=== PATIENT | male | born 1970 | race Native Hawaiian/Other Pacific Islander ===

== ENCOUNTER 2018-05-17 14:21 | Emergency (ER) | payer OTHER ==
[2018-05-17 14:47] VITALS: BP 144/75
--- NOTE | 2018-05-17 14:47 | UC ---
Skin Complaint HPI - HPI Summary HPI Summary: 48 y/o male presents to the urgent care c/o red painful lump in the Rt axilla for the past week. Pain is 5/10 and radiates to the RT nipple. He thought it was a rash from the deodorant at the beginning. Now lump is bigger, more painful and hard. Pt has not taking anything to alleviate symptoms. Pt denies fever, SOB, chest pain, abdominal pain, N/V/D, URI, Hx of STD's. l - History of Current Complaint Time Seen by Provider: 05/17/18 14:46 Stated Complaint: LUMP UNDER ARM Hx Obtained From: Patient Onset/Duration: Gradual Onset, Lasting Weeks - 1 week, Still Present, Worse Since - today Skin Exposure Onset/Duration: Weeks Ago - 1 Timing: Constant Onset Severity: Mild Current Severity: Moderate Pain Intensity: 5 - touch Pain Scale Used: 0-10 Numeric Location: Discrete - RT axilla Character: Swelling, Redness, Raised, Painful Aggravating Factor(s): Touch Alleviating Factor(s): Nothing Associated Signs & Symptoms: Positive: Rash, Tenderness. Negative: Fever, Chills - Allergy/Home Medications Allergies/Adverse Reactions: Allergies Allergy/AdvReac Type Severity Reaction Status Date / Time No Known Allergies Allergy Verified 05/17/18 14:47 Review of Systems Constitutional: Negative Skin: Other - RT axilla w/ a painful red lump Eyes: Negative ENT: Negative Respiratory: Negative Cardiovascular: Negative Gastrointestinal: Negative Genitourinary: Negative Motor: Negative Neurovascular: Negative Musculoskeletal: Negative Neurological: Negative Psychological: Negative Is Patient Immunocompromised?: No All Other Systems Reviewed And Are Negative: Yes PMH/Surg Hx/FS Hx/Imm Hx Previously Healthy: Yes - Pt denies PMHX - Surgical History Surgical History: None - Family History Known Family History: Positive: Cardiac Disease, Hypertension Family History: Cancer - Social History Occupation: Employed Full-time Lives: With Family Alcohol Use: Occasionally Substance Use Type: None Physical Exam - Summary Physical Exam Summary: Vital Signs Reviewed: Yes General: well developed, well nourished male sitting in the examining table w/o any apparent distress Eye Exam: Normal Eyes: Positive: Conjunctiva Clear - PERRLA, EOMI, fundi grossly normal ENT: Positive: Normal ENT inspection, Hearing grossly normal, Pharynx normal, TMs normal Neck: Positive: Supple, Nontender, No Lymphadenopathy Respiratory: Positive: Chest non-tender, Lungs clear, Normal breath sounds, No respiratory distress Cardiovascular: Positive: RRR, No Murmur, Pulses Normal, Brisk Capillary Refill Abdomen Description: Positive: Nontender, No Organomegaly, Soft. Negative: CVA Tenderness (R), CVA Tenderness (L) Bowel Sounds: Positive: Present Musculoskeletal: Positive: Strength Intact, ROM Intact, No Edema Neurological: Positive: Alert, Muscle Tone Normal Psychological Exam: Normal Skin: Positive: RT axilla with an erythematous pustule that is indurated and fluctuant, tender to palpation, swollen, and warm to touch about 4.0cm x 2cm in size. FROM of phalanx, sensation is intact, capillary refill WNL, reflexes WNL Triage Information Reviewed: Yes Course/Dx - Course Course Of Treatment: 48 y/o male presents to the urgent care c/o red painful lump in the Rt axilla for the past week. Pain is 5/10 and radiates to the RT nipple. He thought it was a rash from the deodorant at the beginning. Now lump is bigger, more painful and hard. Pt has not taking anything to alleviate symptoms. Pt denies fever, SOB, chest pain, abdominal pain, N/V/D, URI, Hx of STD's.Hx obtained. Pt w/ a Rt axillary abscess about 4.0cm x2.0cm in size on examination. I&D of abscess procedure:The procedure was explained and consent obtained. Garrett protocol performed w/ Nurse Chelo. The wound was anesthetized with 4mL of Lido 1% with good anesthesia. Sterile drape and prep were done. The fluctuant center was incised with #11 blade scalpel. A moderate amount of caseous material was expressed . wound cultures obtained and sent to lab to r/o MRSA. The wound was probed for loculated areas and irrigated with normal saline. The wound was packed loosely with wick or left open. Bacitracin topical ointment applied and wound covered with sterile dressing. The patient tolerated the procedure well. Pt Rx Keflex PO and ibuprofen PO for pain. Advised to return to the urgent care for wound check up and removal of packing. Pt advised fever develops and pain increase despite ABX to go immediately to the ER for further management. Pt's BP is elevated today advised to decrease salt in diet, monitor BP and f/u with PCP for further management. Pt understood and agreed with D/C instructions. Left the clinic ambulating A&OX3. - Differential Diagnoses - Skin Complaint Differential Diagnoses: Abscess, Cellulitis, Lymphadenitis, MRSA - Diagnoses Provider Diagnoses: 1- Incision and drainage of Rt axillary abscess. 2- Elevated BP w/o Hx of HTN Discharge - Sign-Out/Discharge Documenting (check all that apply): Discharge/Admit/Transfer - D/C home - Discharge Plan Condition: Stable Disposition: HOME Prescriptions: Cephalexin CAP* [Keflex CAP*] 500 mg PO QID #28 cap Ibuprofen TAB* [Motrin TAB* 800 MG] 800 mg PO Q6H PRN #30 tab PRN Reason: Pain Patient Education Materials: Abscess (ED), Low-Sodium Diet (ED) Referrals: [facility] [place] [facility] [Outside] - 2 Days Additional Instructions: 1-Please take full course of antibiotic to avoid resistance. Keep wound clean and dry with a sterile dressing. Apply bacitracin topical as directed 2- F/u wound check up in 2 days with your PCP or at the urgent care for removal of packing 3-. Take Ibuprofen PO q6-8hrs prn for pain or swelling. 4-If you develop fever or redness despite antibiotic please go to the ER immediately or return to the Urgent care. 5- Wound culture sent to lab, if any abnormal result you will receive a call from us. 6-Your BP is elevated today. please decrease salt in your diet, monitor BP and if it continues to be elevated please f/u with your PCP for further management - Billing Disposition and Condition Condition: STABLE Disposition: Home
[2018-05-17] MEDS ORDERED: Lidocaine 1%* 5 ML VIAL INJ ONE (15:05)
== END 2018-05-17 15:52 | disposition home or self-care (01) ==
LOC: UCEAST 14:21
DX: L02.411 Cutaneous abscess of right axilla (principal); R03.0 Elevated blood-pressure reading, without diagnosis of hypertension; Z82.49 Family history of ischemic heart disease and other diseases of the circulatory system; Z80.9 Family history of malignant neoplasm, unspecified
CPT/HCPCS: 10060; 87070; 87077; 87205; 87640; 87641; 99202; G0463

== ENCOUNTER 2018-05-19 16:50 | Emergency (ER) | payer OTHER ==
[2018-05-19 17:11] VITALS: BP 124/77
--- NOTE | 2018-05-19 17:20 | UC ---
HPI Wound/Suture Re-check - HPI Summary HPI Summary: I&D right axilla 2 days ago here for wound re-check and packing removal---MSSA on Keflex - History Of Current Complaint Chief Complaint: UCSkin Stated Complaint: WOUND RECHECK Time Seen by Provider: 05/19/18 17:03 Hx Obtained From: Patient Onset/Duration: Sudden Onset Severity: Mild - Allergies/Home Medications Allergies/Adverse Reactions: Allergies Allergy/AdvReac Type Severity Reaction Status Date / Time No Known Allergies Allergy Verified 05/17/18 14:47 PMH/Surg Hx/FS Hx/Imm Hx Previously Healthy: Yes - Surgical History Surgical History: None Surgery Procedure, Year, and Place: denies - Family History Known Family History: Positive: Cardiac Disease, Hypertension Family History: Cancer - Social History Occupation: Employed Full-time Lives: With Family Alcohol Use: Occasionally Substance Use Type: None Smoking Status (MU): Light Every Day Tobacco Smoker Review of Systems Constitutional: Negative Skin: Other - wick removed when patient was changing dressing Eyes: Negative ENT: Negative Respiratory: Negative Cardiovascular: Negative Gastrointestinal: Negative Genitourinary: Negative Motor: Negative Neurovascular: Negative Musculoskeletal: Negative Neurological: Negative Psychological: Negative Is Patient Immunocompromised?: No All Other Systems Reviewed And Are Negative: Yes Physical Exam Triage Information Reviewed: Yes Appearance: Well-Appearing, No Pain Distress, Well-Nourished Vital Signs Reviewed: Yes Eye Exam: Normal Eyes: Positive: Conjunctiva Clear ENT Exam: Normal ENT: Positive: Normal ENT inspection, Hearing grossly normal. Negative: Trismus , Muffled voice, Hoarse voice Dental Exam: Normal Neck exam: Normal Respiratory Exam: Normal Respiratory: Positive: Chest non-tender, No respiratory distress, No accessory muscle use Cardiovascular Exam: Normal Cardiovascular: Positive: RRR, Pulses Normal, Brisk Capillary Refill Musculoskeletal Exam: Normal Musculoskeletal: Positive: Strength Intact, ROM Intact Neurological Exam: Normal Skin Exam: Other Skin: Positive: Other - firm non fluctulant cyst right axilla no redness or streaking Course/Dx - Course Course Of Treatment: continue keflex, warm compress follow with pcp prn or return as needed - Differential Dx - Laceration/Wound Provider Diagnoses: abscess right axilla Discharge - Sign-Out/Discharge Documenting (check all that apply): Discharge/Admit/Transfer, Post-Discharge Follow Up - Discharge Plan Condition: Stable Disposition: HOME Patient Education Materials: Incision and Drainage (ED), Warm Compress or Soak (ED) Referrals: [facility] [Outside] [facility] [Outside] - If Needed () - Billing Disposition and Condition Condition: STABLE Disposition: Home
--- NOTE | 2018-05-20 13:23 | UC ---
- Progress Note Progress Note: MRSA neg S. aureus positive on keflex await sensitivity ljj 05/20/2018 Discharge - Sign-Out/Discharge Documenting (check all that apply): Post-Discharge Follow Up - Discharge Plan Condition: Stable Disposition: HOME Patient Education Materials: Incision and Drainage (ED), Warm Compress or Soak (ED) Referrals: [facility] [Outside] [facility] [place] [facility] [Outside] - If Needed () - Billing Disposition and Condition Condition: STABLE Disposition: Home
== END 2018-05-19 17:30 | disposition home or self-care (01) ==
LOC: UCEAST 16:50
DX: L02.411 Cutaneous abscess of right axilla (principal); B95.61 Methicillin susceptible Staphylococcus aureus infection as the cause of diseases classified elsewhere; Z82.49 Family history of ischemic heart disease and other diseases of the circulatory system; Z80.9 Family history of malignant neoplasm, unspecified; F17.200 Nicotine dependence, unspecified, uncomplicated
CPT/HCPCS: 99211; G0463